=== PATIENT | female | born 1985 | race Asian ===

== ENCOUNTER 2016-10-16 10:41 | Emergency (ER) | payer OTHER ==
[~2016-10-16] VITALS: Ht 154.9 cm; Wt 67.3 kg
[2016-10-16 12:48] LABS: BASOPHILS % (AUTO) 0.4 % (0.0-2.0); EOSINOPHILS % (AUTO) 0.5 % (1.0-6.0); HEMATOCRIT 32.7 % (36-46); HEMOGLOBIN 10.6 g/dL (12.0-16.0); LYMPHOCYTES # (AUTO) 1.9 K/uL (1.0-4.8); LYMPHOCYTES % (AUTO) 19.6 % (22.0-44.0); MEAN CORPUSCULAR HGB CONC 32.3 G/dL (31.0-37.0); MEAN CORPUSCULAR VOLUME 93 fL (80-100); MONOCYTES # (AUTO) 0.8 K/uL (0.1-1.0); MONOCYTES % (AUTO) 7.9 % (2.0-9.0); NEUTROPHILS # (AUTO) 6.9 K/uL (1.8-7.7); NEUTROPHILS % (AUTO) 71.6 % (40.0-70.0); PLATELET COUNT (AUTO) 357 K/uL (150-450); RED BLOOD CELL COUNT(AUTO) 3.53 MIL/uL (4.00-5.20); RED CELL DISTRIBUTION WIDTH 13.5 % (11.5-14.5); WHITE BLOOD COUNT (AUTO) 9.6 K/uL (4.5-11.0)
[2016-10-16 12:59] LABS: ANION GAP 13 mmol/L (8-16); CALCIUM, TOTAL 8.7 mg/dL (8.8-10.5); CARBON DIOXIDE 22 mmol/L (22-29); CHLORIDE 106 mmol/L (98-107); GLOMERULAR FILTR. RATE CALC > 60 mL/min (>60); POTASSIUM 3.5 mmol/L (3.5-5.1); SODIUM SERUM 141 mmol/L (136-145); UREA NITROGEN, BLOOD 6 mg/dL (7-18)
[2016-10-16 13:05] LABS: ALANINE AMINOTRANSFERASE 16 U/L (12-78); ALBUMIN 2.7 g/dL (3.4-5.0); ASPARTATE AMINOTRANSFERASE 12 U/L (15-37); BILIRUBIN,TOTAL 0.2 mg/dL (0.1-1.0); TOTAL PROTEIN, SERUM 6.3 g/dL (6.4-8.2)
[2016-10-16 14:25] VITALS: BP 107/62
== END 2016-10-16 14:27 | disposition home or self-care (01) ==
LOC: EMS 10:43
DX: O26.893 Other specified pregnancy related conditions, third trimester (principal); R00.2 Palpitations; Z3A.30 30 weeks gestation of pregnancy
CPT/HCPCS: 93005; 99285

== ENCOUNTER 2017-03-10 19:35 | Emergency (ER) | payer OTHER ==
[~2017-03-10] VITALS: Ht 152.4 cm; Wt 60.0 kg
[2017-03-10 20:22] LABS: APPEARANCE,URINE CLEAR (CLEAR); GLUCOSE, URINE (UA) NEGATIVE (NEGATIVE); KETONES,URINE NEGATIVE (NEGATIVE); LEUKOCYTE ESTERASE ,URINE NEGATIVE (NEGATIVE); OCCULT BLOOD,URINE TRACE (NEGATIVE); PH,URINE 6.5 (5.0-8.0); PROTEIN,URINE NEGATIVE (NEGATIVE)
[2017-03-10 20:35] LABS: SQUAMOUS EPITHELIAL CELL,UR Few /LPF (None Seen)
[2017-03-10 20:37] LABS: RBC,URINE 0-2 /HPF (0-2)
[2017-03-10 22:13] VITALS: BP 128/78
== END 2017-03-10 22:16 | disposition home or self-care (01) ==
LOC: EMS 19:37
DX: M54.18 Radiculopathy, sacral and sacrococcygeal region (principal)
CPT/HCPCS: 99284